=== PATIENT | male | born 1985 | race Caucasian/White ===

== ENCOUNTER 2018-12-11 12:22 | Outpatient (CLI) | payer OTHER, SELFPAY ==
[2018-12-11 12:53] LABS: Abs Immature Grans 0.01 k/cumm (0.0-0.09); Absolute Basophil Count 0.05 k/cumm (0.0-0.2); Absolute Eosinophil Count 0.19 k/cumm (0.0-0.7); Absolute Lymphocyte Count 1.43 k/cumm (1.2-3.4); Absolute Monocyte Count 0.59 k/cumm (0.11-0.7); Absolute Neutrophil Count 3.01 k/cumm (1.2-6.7); Basophils % 0.9; Eosinophils % 3.6; HCT 40.5 % (40.0-50.0); HGB 13.3 g/dL (13.5-17.5); Immature Grans % 0.2; Lymphocytes % 27.1; Mean Corp. HGB Concentration 32.8 g/dL (32.0-36.0); Mean Corpuscular Hemoglobin 21.1 pg (27.0-33.0); Mean Corpuscular Volume 64.3 fL (80-95); Mean Platelet Volume 9.7 fL (8.0-11.0); Monocytes % 11.2; Platelet Count 322 x1000/uL (130-400); RBC Distribution Width 15.4 % (11.8-14.1); White Blood Cell Count 5.28 k/cumm (4.4-10.8)
[2018-12-11 13:30] LABS: ALT 38 U/L (12-78); AST 19 U/L (15-37); Albumin 4.1 g/dL (3.4-5.0); Alkaline Phosphatase 150 U/L (46-116); Anion Gap 7.6 mmol/L (3-11); BUN 17 mg/dL (7-18); Bilirubin, Total 0.3 mg/dL (0.2-1.0); CO2 31.4 mmol/L (21.0-32.0); CREATININE 1.04 mg/dL (0.70-1.30); Calcium 9.5 mg/dL (8.5-10.1); Chloride 101 mmol/L (98-107); Glucose 98 mg/dL (70-100); Potassium 4.3 mmol/L (3.5-5.1); Sodium 140 mmol/L (136-145); Total Protein 7.3 g/dL (6.4-8.2)
[2018-12-11 13:42] LABS: PHENYTOIN (DILANTIN) 15.1 ug/mL (10.0-20.0)
[2018-12-11 13:53] LABS: Diff Comment Agrees w/ Instrument; Hypochromasia 1+; Microcytosis 3+
[2018-12-11 14:36] LABS: Vitamin D 25 Total 30.1 ng/ml (30-100)
== END 2018-12-11 12:42 ==
PROVIDERS: Visit Provider Psychiatry & Neurology Neurology
DX: G35 Multiple sclerosis (principal); G40.109 Localization-related (focal) (partial) symptomatic epilepsy and epileptic syndromes with simple partial seizures, not intractable, without status epilepticus; Z51.81 Encounter for therapeutic drug level monitoring
CPT/HCPCS: 36415; 80053; 82306; 80185; 85025

== ENCOUNTER 2018-12-22 01:20 | Outpatient (CLI) | payer OTHER, SELFPAY ==
--- NOTE | 2018-12-22 13:00 | DI.MRI_ITS ---
SYMPTOM/DIAGNOSIS: MS, CLINICALLY STABLE. FOCAL EPILEPSY G35, G40.109 MRI BRAIN: T2 sagittal, Flair sagittal, T1, T2 Flair, gradient echo and diffusion axial, T2 coronal and post Gadolinium T1 axial and coronal sequences were performed. There are multiple abnormal foci in the periventricular white matter. The largest lesions are located above the left lateral ventricle. There is a lesion seen in the splenium of the corpus callosum. No enhancing lesions are identified. There is no significant underlying atrophy. The vascular flow voids appear intact. The ventricles are normal in size. IMPRESSION: Multiple abnormal high signal lesions in the white matter consistent with the patient's history of multiple sclerosis. There are no enhancing lesions.
[2018-12-22] MEDS: Normal Saline Flush 10 ML SYR IVP (14:47)
[2018-12-22] MEDS: Gadoterate meglumine 20 ML VIAL 14 ML IVP (14:49)
--- NOTE | 2018-12-22 15:09 | DI.MRI_ITS ---
SYMPTOM/DIAGNOSIS: MS, CLINICALLY STABLE, FOCAL EPILEPSY G335, G40.109 MRI CERVICAL SPINE: There are no prior comparison exams. T1, T2, STIR, Flair, and T2 3D sagittal , T1 and gradient echo axial and post Gadolinium T1 axial and coronal sequences were performed. There are degenerative disc changes at C5-6. Small end plate osteophytes and mild posterior disc bulging. No disc herniation is seen. The remaining levels are unremarkable. The cord signal appears normal throughout. No abnormal areas of post contrast enhancement are seen. The marrow signal appears normal. IMPRESSION: Degenerative disc changes at C5-6, some effacement of the anterior CSF space. No cord lesion is identified.
== END 2018-12-22 01:40 ==
PROVIDERS: Visit Provider Psychiatry & Neurology Neurology
DX: G35 Multiple sclerosis (principal); G40.109 Localization-related (focal) (partial) symptomatic epilepsy and epileptic syndromes with simple partial seizures, not intractable, without status epilepticus; M50.322 Other cervical disc degeneration at C5-C6 level
CPT/HCPCS: 70553; 72156

== ENCOUNTER 2018-12-25 01:42 | Outpatient (CLI) | payer OTHER, SELFPAY ==
--- NOTE | 2019-01-03 20:43 | PDOC.EEG_ITS ---
EEG: [facility] Department of Neurology LONG-TERM AMBULATORY EEG REPORT Date of Recordin12/25/18-12/26/18 Interpreting Physician: Dr. Oliva Silva PCP/Referring Provider: Dr. Kary Hernandez Reason for study: Mr. Walker is a 33 year-old man with a history of eliepsy with no recent seizures, comptemplating medication reduction. Current Medications: Home Medications Medication Instructions Recorded Confirmed Type cholecalciferol (vitamin D3) 1,000 1,000 unit PO DAILY 10/22/18 12/10/18 History unit capsule kogxetnwvmmf-Ln-evfg-minerals tab PO DAILY tab 10/22/18 12/10/18 History tablet phenytoin sodium extended 100 mg 400 mg PO BID cap 10/22/18 12/10/18 History capsule glatiramer 20 mg/mL subcutaneous 20 mg SC DAILY #30 ml 12/10/18 12/10/18 Rx syringe levetiracetam 1,000 mg tablet 1,000 mg PO BID #180 tab 12/10/18 12/10/18 Rx phenytoin sodium extended 200 mg 200 mg PO BID #180 cap 12/10/18 12/10/18 Rx capsule METHODS: An 18-channel digitized electroencephalogram was recorded in the ambulatory setting with video. The 10/20 international system of electrode placement was used and bipolar and referential electrode montages were recorded. In addition to EEG the patient was monitored for EKG and by video. Activation procedures of photic stimulation and hyperventilation were performed if applicable. The dura tion of the recording was ~24 hours. DESCRIPTION OF EEG: Waking background activity: During maximal wakefulness a 9-Hz posterior background rhythm was present which was well-modulated, symmetrical, reactive to eye opening, and of moderate voltage. Faster frequencies were present in the bilateral anterior head regions. There was a normal anterior-posterior voltage gradient. Drowsy and sleeping background activity: During drowsiness, there was attenuation of the posterior dominant background rhythm and vertex waves. Normal stage II and III sleep was present with symmetrical sleep spindles, K- complexes, and vertex waves with slowing of the background rhythm to delta/theta frequencies. REM sleep manifested by rapid lateral eye movements and faster background rhythms was recorded. Arousal was unremarkable. There were frequent nocturnal arousals. Interictal abnormalities: none. Ictal findings: No events recorded. Activating Procedures: Photic stimulation was performed which produced no posterior driving response. Hyperventilation was performed with moderate effort and produced no physi ological slowing of the background. EKG: EKG revealed normal sinus rhythm. INTERPRETATION: This long-term EEG is normal during the awake and sleep states as well as during the activation procedures. There were frequent nocturnal arousals. PRIOR EEG: none available CLINICAL CORRELATION: No focal regions of cerebral dysfunction or epileptiform activity was present. There were frequent nocturnal arousals. Clinical correlation for possible sleep apnea is advised. Oliva Silva MD
== END 2018-12-25 02:02 ==
PROVIDERS: Visit Provider Psychiatry & Neurology Neurology
DX: R68.89 Other general symptoms and signs (principal); G35 Multiple sclerosis; G40.109 Localization-related (focal) (partial) symptomatic epilepsy and epileptic syndromes with simple partial seizures, not intractable, without status epilepticus
CPT/HCPCS: 95953

== ENCOUNTER 2019-12-04 02:13 | Outpatient (CLI) | payer OTHER, SELFPAY ==
--- NOTE | 2019-12-04 08:15 | DI.MRI_ITS ---
EXAM: MR BRAIN WO/W CLINICAL HISTORY: MS; stable,G35. TECHNIQUE: Multiplanar multisequence MRI of the brain was performed. CONTRAST MATERIAL: IV Contrast: 15 ML of Dotarem contrast administered. COMPARISON: MR MR HEAD W/WO CONTRAST from 07/15/2017 FINDINGS: VENTRICLES AND EXTRA AXIAL SPACES: Normal in size and morphology for the patient's age. HEMORRHAGE: None. CEREBRAL PARENCHYMA: There are stable multiple bilateral high signal foci in the white matter, some i n a periventricular location. There has been no change in the lesions in the corpus callosum no focu s of restricted diffusion to suggest acute infarct active lesion.. No space-occupying lesion identifi ed. MIDLINE SHIFT: None. BRAINSTEM/CEREBELLUM: Normal. ENHANCEMENT: No suspicious enhancement identified. VISUALIZED PARANASAL SINUSES/MASTOIDS: Mucous retention at the floor of the right maxillary sinus.. OTHER FINDINGS: The vascular flow voids appear intact. The orbits are unremarkable. IMPRESSION: Multiple stable white matter lesions consistent with the patient's history of multiple sclerosis. No new lesions or evidence of enhancement. DATA REPOSITORY:
[2019-12-04 14:40] LABS: Abs Immature Grans 0.01 k/cumm (0.0-0.09); Absolute Basophil Count 0.02 k/cumm (0.0-0.2); Absolute Eosinophil Count 0.27 k/cumm (0.0-0.7); Absolute Lymphocyte Count 2.15 k/cumm (1.2-3.4); Absolute Monocyte Count 0.48 k/cumm (0.11-0.7); Absolute Neutrophil Count 3.03 k/cumm (1.2-6.7); Basophils % 0.3; Eosinophils % 4.5; HCT 39.8 % (40.0-50.0); HGB 13.2 g/dL (13.5-17.5); Immature Grans % 0.2 %; Lymphocytes % 36.1; Mean Corp. HGB Concentration 33.2 g/dL (32.0-36.0); Mean Platelet Volume 9.8 fL (8.0-11.0); Monocytes % 8.1; Neutrophils % 50.8; Platelet Count 313 x1000/uL (130-400); RBC Distribution Width 15.5 % (11.8-14.1); White Blood Cell Count 5.96 k/cumm (4.4-10.8)
[2019-12-04] MEDS: Gadoterate meglumine 20 ML VIAL 10 ML IVP (14:52)
[2019-12-04] MEDS: Normal Saline Flush 10 ML SYR IVP (14:54)
[2019-12-04 14:57] LABS: ALT 49 U/L (16-63); AST 25 U/L (15-37); Albumin 4.1 g/dL (3.4-5.0); Alkaline Phosphatase 96 U/L (46-116); Anion Gap 3.9 mmol/L (3-11); BUN 24 mg/dL (7-18); Bilirubin, Total 0.4 mg/dL (0.2-1.0); CO2 31.1 mmol/L (21.0-32.0); CREATININE 1.25 mg/dL (0.70-1.30); Calcium 9.5 mg/dL (8.5-10.1); Chloride 103 mmol/L (98-107); Glucose 117 mg/dL (74-106); Potassium 4.1 mmol/L (3.5-5.1); RBC 6.23 m/cumm (4.50-6.00); Sodium 138 mmol/L (136-145); Total Protein 7.5 g/dL (6.4-8.2)
[2019-12-04 14:58] LABS: Mean Corpuscular Hemoglobin 21.2 pg (27.0-33.0); Mean Corpuscular Volume 63.9 fL (80-95)
[2019-12-04 15:02] LABS: Diff Comment RBC Morph Reviewed; Microcytosis 2+
== END 2019-12-04 02:33 ==
PROVIDERS: PCP Family Medicine; Visit Provider Psychiatry & Neurology Neurology
DX: G35 Multiple sclerosis (principal)
CPT/HCPCS: 70553; 80053; 85025

== ENCOUNTER 2019-12-15 14:56 | Outpatient (REF) | payer OTHER, SELFPAY ==
[2019-12-17 10:20] LABS: COVID-19 RT-PCR UVMMC Result Negative (Negative)
== END 2019-12-15 15:16 ==
LOC: NCHCN 14:56
PROVIDERS: PCP Family Medicine; Visit Provider Nurse Practitioner Family
DX: J02.9 Acute pharyngitis, unspecified (principal)
CPT/HCPCS: U0003

== ENCOUNTER 2019-12-24 04:41 | Outpatient (CLI) | payer OTHER, SELFPAY ==
[2019-12-24 13:04] LABS: ALT 45 U/L (16-63); AST 30 U/L (15-37); Albumin 4.4 g/dL (3.4-5.0); Alkaline Phosphatase 101 U/L (46-116); Anion Gap 9.3 mmol/L (3-11); BUN 21 mg/dL (7-18); Bilirubin, Total 0.5 mg/dL (0.2-1.0); CO2 28.7 mmol/L (21.0-32.0); Calcium 9.8 mg/dL (8.5-10.1); Chloride 102 mmol/L (98-107); Glucose 91 mg/dL (74-106); Potassium 4.3 mmol/L (3.5-5.1); Sodium 140 mmol/L (136-145); Total Protein 7.5 g/dL (6.4-8.2); Triglyceride 47 mg/dL (<150)
== END 2019-12-24 05:01 ==
PROVIDERS: PCP Family Medicine; Visit Provider Dermatology
DX: Z79.899 Other long term (current) drug therapy (principal)
CPT/HCPCS: 36415; 80053; 84478

== ENCOUNTER 2020-01-06 04:37 | Outpatient (CLI) | payer OTHER, SELFPAY ==
--- NOTE | 2020-01-12 09:04 | PDOC.EEG ---
Neurology EEG EEG: Of note, this study was performed in error. There should be no charges for this visit! [facility] Department of Neurology LONG-TERM AMBULATORY EEG REPORT Date of Recordin01/06/20 at 15:31:01 to 01/07/20 at 12:10:11 Interpreting Physician: Dr. Oliva Silva PCP/Referring Provider: Dr. Hernandez Reason for study: Mr. Walker has a history of seizure disorder. This test was performed in error. Current Medications: Home Medications Medication Instructions Recorded Confirmed Type levetiracetam 1,000 mg tablet 1,000 mg PO BID #180 tab 12/10/18 11/25/19 Rx ergocalciferol (vitamin D2) 1,250 50,000 unit PO QWEEK #12 cap 02/05/19 11/25/19 Rx mcg (50,000 unit) capsule tretinoin 0.05 % topical cream 1 applic TP QHS 02/05/19 11/25/19 History doxycycline hyclate 100 mg tablet 100 mg PO BID 06/10/19 11/25/19 History glatiramer 20 mg/mL subcutaneous 20 mg SC DAILY #30 ml 12/28/19 Rx syringe METHODS: An 18-channel digitized electroencephalogram was recorded in the ambulatory setting with video. The 10/20 international system of electrode placement was used and bipolar and referential electrode montages were recorded. In addition to EEG the patient was monitored for EKG and by video. Activation procedures of photic stimulation and hyperventilation were performed if applicable. The duration of the recording was 20.5 hours. DESCRIPTION OF EEG: Waking background activity: During maximal wakefulness a 9-Hz posterior background rhythm was present which was well-modulated, symmetrical, reactive to eye opening, and of moderate voltage. Faster frequencies were present in the bilateral anterior head regions. There was a normal anterior-posterior voltage gradient. Drowsy and sleeping background activity: During drowsiness, there was attenuation of the posterior dominant background rhythm and vertex waves. Normal stage II and III sleep was present with symmetrical sleep spindles, K-complexes, and vertex waves with slowing of the background rhythm to delta/theta frequencies. REM sleep manifested by rapid lateral eye movements and faster background rhythms was recorded. Arousal was unremarkable. Interictal abnormalities: none. Ictal findings: No events recorded. Activating Procedures: Photic stimulation was performed which produced a symmetrical posterior driving response at various flash frequencies. There was a generalized, low-amplitude single sharp-wave during 3 Hz photic stimulation (this was not repeated). Hyperventilation was performed with moderate effort and produced mild physiological slowing of the background. EKG: EKG revealed normal sinus rhythm. INTERPRETATION: This long-term EEG is abnormal due to a low-amplitude, generalized photoparoxysmal response during photic stimulation. PRIOR EEG: -Amb EEG (12/2018): normal. No events recorded. Frequent noctural arousals. CLINICAL CORRELATION: The photoparoxysmal response above is not diagnostic of an epileptic disorder but, based on it's features, suggests an increased risk of a generalized epilepsy disorder. Clinical correlation is advised. Oliva Silva MD
== END 2020-01-06 04:57 ==
PROVIDERS: PCP Family Medicine; Visit Provider Psychiatry & Neurology Neurology
DX: R69 Illness, unspecified (principal)

== ENCOUNTER 2020-06-21 09:54 | Outpatient (CLI) | payer OTHER, SELFPAY ==
[2020-06-23 21:39] LABS: COVID-19 RT-PCR Result NEGATIVE (Negative)
== END 2020-06-21 10:14 ==
PROVIDERS: PCP Student in an Organized Health Care Education/Training Program; Visit Provider Student in an Organized Health Care Education/Training Program
DX: Z20.828 Contact with and (suspected) exposure to other viral communicable diseases (principal)
CPT/HCPCS: U0003

== ENCOUNTER 2020-09-23 02:27 | Outpatient (CLI) | payer OTHER, SELFPAY ==
[2020-09-23 15:44] LABS: ALT 43 U/L (16-63); AST 28 U/L (15-37); Triglyceride 120 mg/dL (<150)
== END 2020-09-23 02:28 | disposition home or self-care (01) ==
LOC: LBO 02:27
PROVIDERS: PCP Student in an Organized Health Care Education/Training Program; Visit Provider Dermatology
DX: Z79.899 Other long term (current) drug therapy (principal); L40.9 Psoriasis, unspecified
CPT/HCPCS: 36415; 84450; 84460; 84478

== ENCOUNTER 2021-11-30 17:09 | Emergency (ER) | payer OTHER, SELFPAY ==
--- NOTE | 2021-11-30 17:11 | ED.GENADUL_ITS ---
Discharge Plan Disposition Patient Disposition: HOME Condition: Improving Discharge Details Clinical Impression: Vomiting and diarrhea Primary Care Provider: Petrona Stewart ED Provider: Senia Hendricks Home Meds and New Rx's Prescriptions: Continued meloxicam 15 mg tablet 15 mg PO DAILY PRN glatiramer [Glatopa] 20 mg/mL syringe 20 mg SC DAILY Qty: 30 11RF ergocalciferol (vitamin D2) [Vitamin D2] 1,250 mcg (50,000 unit) capsule 50,000 unit PO QWEEK Qty: 12 3RF levetiracetam 500 mg tablet extended release 24 hr 1,000 mg PO HS Qty: 180 3RF tretinoin 0.05 % cream 1 applic topical QHS Rx Instructions: Apply topically 1/2 nights per week, working up to nightly Discharge Instructions Instructions: Gastroenteritis (ED), Acute Nausea and Vomiting (ED), Acute Diarrhea (ED) Additional Instructions: Your lab work today is reassuring and shows no evidence of acute concerning or significant findings. Your COVID, flu and RSV test today are negative. Your stool sample culture is pending. Drink plenty of fluids and get plenty of rest. Alternate tylenol and motrin as needed and directed for pain. Take the Zofran as needed and directed for nausea and vomiting. Follow-up with your primary care doctor in 1 week. Return to the emergency department with any worsening or new concerning symptoms such as worsening or persistent fevers, persistent vomiting or worsening abdominal pain for reevaluation. Stand Alone Forms: Work Release Discharge Data Discharge Date/Time-TO BE ENTERED AT DEPARTURE: 11/30/21 20:38 Discharge Physician: Senia Hendricks Medical Decision Making 1720 -- 36-year-old male with a history of multiple sclerosis and epilepsy presents with fever, chills, body aches, nausea, vomiting x1 and multiple episodes of watery yellow diarrhea since yesterday. Heart rate mildly elevated at 98. Remainder vitals within normal limits. Patient appears comfortable and nontoxic. Patient is concerned about possible COVID or influenza as his has a chronic illness and does not want to expose her to either of these. He has received 3 COVID vaccines. He states he has not urinated today. Suspect acute viral illness, consider influenza, COVID, gastroenteritis. We will place an IV, bolus IV fluids, Fluvid, screening labs and give dose of IV Zofran, Toradol and reassess. 1899 --labs reviewed. Normal white blood cell count. Patient has low RBC, MCV and MCHC CAD consistent with history of thalassemia and iron deficiency. Potassium 3.4. Negative Fluvid. Patient reassessed and he states he has not yet urinated. He denies any abdominal pain. Reassessment of abdomen is soft and nontender. Discussed consideration for CT imaging but he declines at this time and I think this is reasonable as he has no significant abdominal pain and abdomen nontender. We will give another liter of IV fluids and see if he can attempt to urinate but overall he feels improved. He has not had any episodes of diarrhea here. 2019 --patient reassessed and he was able to urinate and urinalysis negative. He was able to provide stool sample. Patient is requesting to go home. He admits to occasional abdominal discomfort but denies any significant pain and would rather go home at this time. Will provide with Zofran as needed for nausea and vomiting. Discussed that if he develops persistent vomiting or worsening abdominal pain, to return to the emergency department for reevaluation and for discussion of CT imaging at that time. Medical Records Medical records reviewed: Yes I reviewed the patient's medical records. Lab Data Lab results reviewed: Yes I reviewed the patient's lab results. Labs: Laboratory Tests Range/Units 11/30/21 11/30/21 11/30/21 17:43 17:43 17:45 WBC (4.4-10.8) 10^3/uL 7.07 RBC (4.36-5.78) 10^6/uL 7.08 H Hgb (13.5-17.5) g/dL 14.4 Hct (40.0-50.0) % 46.9 MCV (80-95) fL 66 L MCH (27.0-33.0) pg 20.3 L MCHC (32.0-36.0) % 30.7 L RDW (11.8-14.1) % 16.0 H Plt Count (130-400) 10^3/uL 279 MPV (8.0-11.0) fL 9.4 Immature Gran % 0.3 Neutrophils % 83.5 Lymphocytes % 9.9 Monocytes % 5.8 Eosinophils % 0.1 Basophils % 0.4 Nucleated RBC % (0.0-0.3) % 0.0 Absolute Neutrophils (1.2-6.7) 10^3/uL 5.90 Absolute Lymphocytes (1.2-3.4) 10^3/uL 0.70 L Absolute Monocytes (0.1-0.8) 10^3/uL 0.41 Absolute Eosinophils (0.0-0.7) 10^3/uL 0.01 Absolute Basophils (0.0-0.2) 10^3/uL 0.03 RBC Morphology See Below Microcytosis 3+ Sodium (136-145) mmol/L 136 Potassium (3.5-5.1) mmol/L 3.4 L Chloride (98-107) mmol/L 102 Carbon Dioxide (21.0-32.0) mmol/L 27.0 Anion Gap (3-11) mmol/L 7.0 BUN (7-18) mg/dL 11 Creatinine (0.70-1.30) mg/dL 1.3 Estimated GFR/1.73 m2 (mL/min/1.73m2) >= 60.00 Glucose (74-106) mg/dL 137 H Calcium (8.5-10.1) mg/dL 9.1 Total Bilirubin (0.2-1.0) mg/dL 0.3 AST (15-37) U/L 23 ALT (16-63) U/L 32 Alkaline Phosphatase (46-116) U/L 98 Total Protein (6.4-8.2) g/dL 8.2 Albumin (3.4-5.0) g/dL 4.3 Lipase (73-393) U/L 60 Urine Color (Yellow) Urine Clarity (Clear) Urine pH (5-8) Ur Specific [place] (1.005-1.025) Urine Protein (Negative) mg/dL Urine Ketones (Negative) mg/dL Urine Blood (Negative) Urine Nitrite (Negative) Urine Bilirubin (Negative) Urine Urobilinogen (Up TO 0.2) EU/dL Ur Leukocyte Esterase (Negative) Urine Glucose (Negative) mg/dL COVID-19 Source Nasopharynx SARS-CoV-2 (PCR) (Negative) Negative Influenza Type A (PCR) (Negative) Negative Influenza Type B (PCR) (Negative) Negative RSV (PCR) (Negative) Negative Range/Units 11/30/21 19:35 WBC (4.4-10.8) 10^3/uL RBC (4.36-5.78) 10^6/uL Hgb (13.5-17.5) g/dL Hct (40.0-50.0) % MCV (80-95) fL MCH (27.0-33.0) pg MCHC (32.0-36.0) % RDW (11.8-14.1) % Plt Count (130-400) 10^3/uL MPV (8.0-11.0) fL Immature Gran % Neutrophils % Lymphocytes % Monocytes % Eosinophils % Basophils % Nucleated RBC % (0.0-0.3) % Absolute Neutrophils (1.2-6.7) 10^3/uL Absolute Lymphocytes (1.2-3.4) 10^3/uL Absolute Monocytes (0.1-0.8) 10^3/uL Absolute Eosinophils (0.0-0.7) 10^3/uL Absolute Basophils (0.0-0.2) 10^3/uL RBC Morphology Microcytosis Sodium (136-145) mmol/L Potassium (3.5-5.1) mmol/L Chloride (98-107) mmol/L Carbon Dioxide (21.0-32.0) mmol/L Anion Gap (3-11) mmol/L BUN (7-18) mg/dL Creatinine (0.70-1.30) mg/dL Estimated GFR/1.73 m2 (mL/min/1.73m2) Glucose (74-106) mg/dL Calcium (8.5-10.1) mg/dL Total Bilirubin (0.2-1.0) mg/dL AST (15-37) U/L ALT (16-63) U/L Alkaline Phosphatase (46-116) U/L Total Protein (6.4-8.2) g/dL Albumin (3.4-5.0) g/dL Lipase (73-393) U/L Urine Color (Yellow) Yellow Urine Clarity (Clear) Clear Urine pH (5-8) 5.5 Ur Specific [place] (1.005-1.025) 1.020 Urine Protein (Negative) mg/dL Negative Urine Ketones (Negative) mg/dL Negative Urine Blood (Negative) Negative Urine Nitrite (Negative) Negative Urine Bilirubin (Negative) Negative Urine Urobilinogen (Up TO 0.2) EU/dL 0.2 Ur Leukocyte Esterase (Negative) Negative Urine Glucose (Negative) mg/dL Negative COVID-19 Source SARS-CoV-2 (PCR) (Negative) Influenza Type A (PCR) (Negative) Influenza Type B (PCR) (Negative) RSV (PCR) (Negative) HPI General Date/Time Provider Initiated Documentation: 11/30/21 17:10 . Limitations to Documentation: no limitations . Information obtained by: patient . HPI Narrative: Patient is a 36-year-old male with a history of multiple sclerosis and epilepsy who presents with fever, body aches, chills, nausea, 1 episode of vomiting and multiple episodes of diarrhea since yesterday. Patient states the diarrhea has been loose, watery and yellow. He states he has had diarrhea every 3 hours today. He states his T-max was 99 tympanic. He Related Data Home Medications Medication Instructions Recorded Confirmed meloxicam 15 mg tablet 15 mg PO DAILY PRN 06/13/20 11/30/21 ergocalciferol (vitamin D2) 1,250 50,000 unit PO QWEEK #12 caps 06/27/20 11/30/21 mcg (50,000 unit) capsule (Vitamin D2) glatiramer 20 mg/mL subcutaneous 20 mg subcut DAILY #30 mL 12/20/20 11/30/21 syringe (Glatopa) levetiracetam 500 mg 1,000 mg PO HS #180 tabs 06/27/21 11/30/21 tablet,extended release 24 hr tretinoin 0.05 % topical cream 1 applic topical QHS 08/10/21 11/30/21 Previous Rx's Medication Instructions Recorded ergocalciferol (vitamin D2) 1,250 50,000 unit PO QWEEK #12 caps 06/27/20 mcg (50,000 unit) capsule (Vitamin D2) glatiramer 20 mg/mL subcutaneous 20 mg subcut DAILY #30 mL 12/20/20 syringe (Glatopa) levetiracetam 500 mg 1,000 mg PO HS #180 tabs 06/27/21 tablet,extended release 24 hr Allergies Allergy/AdvReac Type Severity Reaction Status Date / Time No Known Allergies Allergy Verified 11/30/21 18:04 General Stated Complaint: Nausea/Vomit/Diar Review of Systems All systems reviewed & are unremarkable except as noted in HPI and below Constitutional Constitutional: Denies chills, Denies excessive sweating, Denies fatigue, Denies fever(s), Denies weakness and Denies weight loss Eyes Eyes: Reports system reviewed and no additional complaints, except as documented and Denies blurry vision ENT Ears, Nose, Mouth, and Throat: Denies vertigo, Denies dizziness, Denies otalgia, Denies nasal congestion, Denies sore throat and Denies throat swelling Cardiovascular Cardiovascular: Denies chest pain, Denies syncope, Denies rapid heart rate and Denies dyspnea Respiratory Respiratory: Denies chest congestion, Denies cough, Denies pain on inspiration and Denies dyspnea Gastrointestinal Gastrointestinal: Denies abdominal pain, Reports diarrhea, Reports nausea and Reports vomiting Genitourinary Genitourinary: Denies hematuria, Denies dysuria and Denies flank pain Musculoskeletal Musculoskeletal: Denies back pain and Denies joint swelling Integumentary/Breasts Skin/Breast: Denies lesions and Denies rash Neurologic Neurologic: Denies behavioral changes, Denies confusion, Denies vertigo, Denies dizziness, Denies syncope, Denies localized weakness and Denies weakness Psychiatric Psychiatric: Denies behavioral changes, Denies confusion and Denies depression Endocrine Endocrine: Denies excessive sweating and Denies fatigue Hematologic/Lymphatic Hematologic/Lymphatic: Denies easy bruising and Denies lymphadenopathy Allergic/Immunologic Allergic/Immunologic: Denies throat swelling PFSH All Active Problems (Updated 11/30/21 @ 20:18 by Senia Hendricks DO) Vomiting and diarrhea (Acute) Stress due to illness of family member (Acute) is going through breast cancer Tx .. young baby @ home .. supportive extended family?? Acne vulgaris (Acute) Per [facility] Derm note from 84 Acne (Acute) Sees dermatology: Accutane, Tretinoin. Uses sunscreen. Family history of heart disease (Acute) Fa had OH @ 44yo (Hx smkg/chol/poor diet, ex). Mo w/ HTN. Hand paresthesia (Acute) resolved .. repetitive work Medical History (Updated 11/30/21 @ 20:18 by Senia Hendricks DO) Focal epilepsy Iron deficiency Hx Thalassemia Multiple sclerosis Surgical History (Updated 11/30/21 @ 19:03 by Senia Hendricks DO) No significant past surgical history Family History Father Heart attack Diabetes Heart disease Maternal Grandfather Heart attack Paternal Grandfather Diabetes Mother Thalassemia Maternal Uncle Breast cancer in male Other Brain cancer Social History Smoking/Tobacco Use Status: Former Tobacco Use Quit Date: 07/08/14 Pack-years: 10 Tobacco: How many years used: 10 Second Hand Exposure: No Smoking risk assessment performed?: Yes Alcohol Intake: current Alcohol Intake frequency: a few times a week Alcohol type: beer and other Drug use: Never Substance use type: marijuana Adopted: No Caregiver/Support person: No Foster care: No Household members: spouse and children Housing: house Number of Children: 1 number of grandchildren: 0 Communication Needs: None Education Level: college Do you need help understanding health information?: Rarely current occupation: Production/Entertainment Pets and animals: Yes Pets and animals: cat(s) and dog(s) Sexually active: Yes Do you think of yourself as: straight/heterosexual Current gender identity: male What is your relationship status?: How often do you talk on the phone with friends or family?: once per week How often do you get together with friends or relatives?: never Do you belong to any clubs or organized social groups?: no Panel score (0-1 are the most socially isolated patients): 1 What type of physical activity do you participate in: walking Duration: 30-45 minutes/day Frequency: 3-4 times per week Rajwinder/Sabianist: None Special rajwinder needs: No Seatbelt use: always Helmet use: Yes Helmet use: other Details: n/a Drive intox or ride w/intox spike driver: No Working smoke detector in home: Yes Do you feel safe at home: Yes Do you feel safe in your relationship?: Yes Exam Const General: cooperative and healthy appearing Orientation: alert, awake and oriented x3 HENMT Head: normal to inspection Ears: hearing grossly normal bilaterally, external ears normal and TM's normal bilaterally General nose exam: external nose normal Face and sinus: normal facial exam Mouth: oral mucosae normal Teeth and gingiva: dentition normal Throat: posterior oropharynx normal Eyes General: appearance normal, both eyes and all related structures Eyelids: eyelids normal Pupils: PERRL EOM: EOM intact bilaterally Neck Neck: normal visual inspection Lymphatic: no lymphadenopathy noted Chest Chest: normal inspection of the chest Resp Effort & Inspection: normal respiratory effort and able to speak in complete sentences Auscultation: clear to auscultation bilaterally Cardio Rate: regular rate Rhythm: regular rhythm GI Inspection: normal to inspection Palpation: soft, not firm, no guarding, no hepatosplenomegaly, no masses and nontender Auscultation: normal bowel sounds Back/Spine/Pelvis Back: no CVA tenderness Skin General skin exam: no rashes or lesions noted Neuro General: patient alert and patient awake Cognition: normal cognition Speech: speech normal Gait: normal gait Motor: muscle tone normal throughout Sensory Exam: no sensory deficits noted Extrem General: normal to inspection, full ROM and capillary refill normal Psych Appearance: grossly normal Mental Status: mental status grossly normal Speech and Movement: speech and movement normal Affect: normal affect Thought Process: normal
[2021-11-30 17:13] VITALS: BP 135/90; PULSE 98; RESP 18; TEMP 37.1; O2SAT 99
[2021-11-30 17:52] LABS: Abs Immature Grans 0.02 10^3/uL (0.0-0.06); Absolute Basophil Count 0.03 10^3/uL (0.0-0.2); Absolute Eosinophil Count 0.01 10^3/uL (0.0-0.7); Absolute Monocyte Count 0.41 10^3/uL (0.1-0.8); Basophils % 0.4; Eosinophils % 0.1; HCT 46.9 % (40.0-50.0); HGB 14.4 g/dL (13.5-17.5); Immature Grans % 0.3; Lymphocytes % 9.9; MCH 20.3 pg (27.0-33.0); MCHC 30.7 % (32.0-36.0); MCV 66 fL (80-95); MPV 9.4 fL (8.0-11.0); Monocytes % 5.8; Neutrophils % 83.5; Platelet Count 279 10^3/uL (130-400); RBC 7.08 10^6/uL (4.36-5.78); RDW-SD 33.3 fL; WBC 7.07 10^3/uL (4.4-10.8)
[2021-11-30] MEDS: Normal Saline 1,000 ML 1000 ML IV ×2 (17:57→19:00)
[2021-11-30] MEDS: Ketorolac 30 MG/ML VIAL IVP (17:58)
[2021-11-30] MEDS: Ondansetron 4 MG/2 ML VIAL IVP (17:58)
[2021-11-30 18:05] LABS: ALT 32 U/L (16-63); AST 23 U/L (15-37); Albumin 4.3 g/dL (3.4-5.0); Alkaline Phosphatase 98 U/L (46-116); BUN 11 mg/dL (7-18); Bilirubin, Total 0.3 mg/dL (0.2-1.0); CREATININE 1.3 mg/dL (0.70-1.30); Calcium 9.1 mg/dL (8.5-10.1); Chloride 102 mmol/L (98-107); Glucose 137 mg/dL (74-106); Lipase 60 U/L (73-393); Potassium 3.4 mmol/L (3.5-5.1); Sodium 136 mmol/L (136-145); Total Protein 8.2 g/dL (6.4-8.2)
[2021-11-30 18:14] LABS: Diff Comment RBC Morph Reviewed; Microcytosis 3+
[2021-11-30 18:37] LABS: COVID-19 PCR Negative (Negative); Influenza A PCR Negative (Negative); Influenza B PCR Negative (Negative); RSV PCR Negative (Negative); Source Nasopharynx
[2021-11-30 19:58] LABS: Bilirubin Negative (Negative); Blood Negative (Negative); Clarity Clear (Clear); Glucose Negative (Negative); Ketones Negative (Negative); Leukocyte Esterase Negative (Negative); Nitrite Negative (Negative); Urobilinogen 0.2 EU/dL (Up TO 0.2); pH 5.5 (5-8)
[2021-11-30] MEDS: Ondansetron O.D.T. 4 MG TABEF, 3 TABS/BTL PO (20:27)
[2021-11-30 20:29] VITALS: BP 118/73; PULSE 77; RESP 16; TEMP 37.1; O2SAT 100
[2021-11-30 20:30] VITALS: BP 118/73; PULSE 77; RESP 16; TEMP 37.1; O2SAT 100
[2021-11-30 21:26] LABS: C Diff PCR Negative (Negative)
[2021-12-01 23:26] LABS: Campylobacter PCR Negative (Negative); Salmonella PCR Negative (Negative); Shiga Toxin PCR Negative (Negative); Shigella/Enteroinvasive Ecoli Negative (Negative)
== END 2021-11-30 20:38 | disposition home or self-care (01) ==
PROVIDERS: Emergency Provider Physician Assistant; PCP Student in an Organized Health Care Education/Training Program
DX: R11.10 Vomiting, unspecified (principal); R19.7 Diarrhea, unspecified
CPT/HCPCS: 36415; 80053; 83690; 87493; 87505; 87637; 96361; 96374; 96375; 99283; 99284; 81003; 85025; J1885; J2405

== ENCOUNTER → 2021-12-13 02:57 | Outpatient (CLI) | payer OTHER, SELFPAY ==
--- NOTE | 2021-12-13 07:15 | DI.MRI_ITS ---
Exam(s) MR BRAIN WO EXAM: MR BRAIN WO CLINICAL HISTORY: MS, clinically stable,g35 TECHNIQUE: Multiplanar multisequence MRI of the brain was performed. MR MR BRAIN WO/W from 12/04/2019 FINDINGS: CEREBRAL PARENCHYMA: There is no evidence of intracranial hemorrhage, mass effect, or shift of midline structures. There are no extra-axial fluid collections. Ventricles are not enlarged or shifted. There is no abnormal signal in the cerebellar hemispheres nor within the bart, midbrain, and thalami. The multiple foci of white matter signal abnormality in the Sherly in supra ventricular white matter as well as in the corpus callosum remains stable on FLAIR imaging when compared to December 2018. There are no foci of restricted diffusion evident on DWI imaging. PITUITARY GLAND: No mass nor parasellar abnormality. No obvious abnormality in the cavernous sinuses. FLOW VOIDS: The expected flow void are noted. No evidence of obvious aneurysm nor obvious vascular ma lformation. PARANASAL SINUSES: Unchanged mucosal thickening in floor the right maxillary sinus. No associated fl uid level. Other paranasal sinuses are clear. ORBITS: No new findings in the orbits. IMPRESSION: Continued stable appearance of the previously described multiple white matter lesions/plaques. No ne w lesions. No abnormal new signal on diffusion imaging. DATA REPOSITORY:
== END ==
PROVIDERS: PCP Student in an Organized Health Care Education/Training Program; Visit Provider Psychiatry & Neurology Neurology
DX: G35 Multiple sclerosis (principal)
CPT/HCPCS: 70551

== ENCOUNTER 2022-02-07 03:11 | Outpatient (CLI) | payer OTHER, SELFPAY ==
[2022-02-07 09:02] LABS: HCT 43.3 % (40.0-50.0); HGB 13.7 g/dL (13.5-17.5); MCH 20.5 pg (27.0-33.0); MCHC 31.6 % (32.0-36.0); MCV 65 fL (80-95); MPV 9.2 fL (8.0-11.0); Platelet Count 326 10^3/uL (130-400); RBC 6.67 10^6/uL (4.36-5.78); RDW 15.2 % (11.8-14.1); RDW-SD 33.1 fL; WBC 6.34 10^3/uL (4.4-10.8)
[2022-02-07 09:32] LABS: Calculated LDL 117 mg/dL (<100); Cholesterol 206 mg/dL (<200); HDL Cholesterol 77 mg/dL (40-60); Triglyceride 64 mg/dL (<150)
[2022-02-08 09:19] LABS: Lab Add On Test DONE
[2022-02-09 14:54] LABS: Hemoglobinopathy Interpretat (See Note)
== END 2022-02-07 03:12 | disposition home or self-care (01) ==
LOC: LBO 03:11
PROVIDERS: PCP Student in an Organized Health Care Education/Training Program; Visit Provider Student in an Organized Health Care Education/Training Program
DX: E46 Unspecified protein-calorie malnutrition (principal); E61.1 Iron deficiency; G35 Multiple sclerosis; R20.2 Paresthesia of skin; Z82.49 Family history of ischemic heart disease and other diseases of the circulatory system; Z13.220 Encounter for screening for lipoid disorders; D64.9 Anemia, unspecified; D56.9 Thalassemia, unspecified; R71.8 Other abnormality of red blood cells
CPT/HCPCS: 36415; 80061; 82306; 85027; 83020

== ENCOUNTER 2022-03-12 01:13 | Outpatient (RCR) | payer OTHER, SELFPAY ==
[2022-03-08] MEDS: Normal Saline Flush 10 ML SYR IVP (13:23)
[2022-03-09] MEDS: Normal Saline Flush 10 ML SYR IVP (13:34)
[2022-03-10] MEDS: Normal Saline Flush 10 ML SYR IVP (13:10)
[2022-03-11] MEDS: Normal Saline Flush 10 ML SYR IVP (13:04)
[2022-03-12] MEDS: Normal Saline Flush 10 ML SYR IVP (13:03)
== END 2022-04-06 23:59 | disposition home or self-care (01) ==
LOC: INF 01:13
PROVIDERS: PCP Student in an Organized Health Care Education/Training Program; Visit Provider Psychiatry & Neurology Neurology
DX: G35 Multiple sclerosis (principal)
CPT/HCPCS: 96365; J2930

== ENCOUNTER → 2022-03-15 02:20 | Outpatient (CLI) | payer OTHER, SELFPAY ==
--- NOTE | 2022-03-15 08:00 | DI.MRI_ITS ---
Exam(s) MR THORACIC SPINE WO/W EXAM: MR THORACIC SPINE WO/W CLINICAL HISTORY: new R leg weakness,MS,G35. TECHNIQUE: Multiplanar multisequence MRI of the Thoracic spine was performed. CONTRAST MATERIAL: IV Contrast: 15 mL of Dotarem contrast administered. COMPARISON: No previous for comparison. FINDINGS: Bones: The vertebral body heights are well maintained. Alignment is satisfactory. The signal characte ristics are unremarkable. Cord: The thoracic cord is normal size and signal intensity. No intrinsic cord lesion is present. Discs: No disc herniation or bulge is present. Soft tissues: Multiple pulmonary nodules are seen up to 1.3 cm in size. Enhancement: There is no abnormal enhancement seen in the spinal cord. IMPRESSION: 1. No spinal cord lesion is seen. No enhancing lesion is seen in the spinal cord. 2. Multiple pulmonary nodules are present up to 1.3 [address] in size[address] A [address] scan of the chest is requested for further evaluation. DATA REPOSITORY:
--- NOTE | 2022-03-15 08:00 | DI.MRI_ITS ---
Exam(s) MR BRAIN WO/W EXAM: MR BRAIN WO/W CLINICAL HISTORY: new R leg weakness,MS,G35 TECHNIQUE: Multiplanar multisequence MRI of the brain was performed. CONTRAST MATERIAL: IV Contrast: 15 mL of Dotarem contrast administered. COMPARISON: MR MR BRAIN WO from 12/13/2021 FINDINGS: VENTRICLES AND EXTRA AXIAL SPACES: Normal in size and morphology for the patient's age. HEMORRHAGE: None. CEREBRAL PARENCHYMA: No focus of restricted diffusion to suggest acute infarct. No space-occupying le giuliana identified. There has been no change in size or number of the multiple white matter lesions seen on the FLAIR and T2 weighted images predominantly in the periventricular space. There is no enhance ment of these lesions following contrast administration. MIDLINE SHIFT: None. BRAINSTEM/CEREBELLUM: Normal. CALVARIUM: Normal. ENHANCEMENT: No suspicious enhancement identified. VISUALIZED PARANASAL SINUSES/MASTOIDS: Small mucous retention cysts or polyps are seen in the right m axillary sinus. The remaining visualized paranasal sinuses are clear. [place] OF JULIEN: Normal flow void. PITUITARY GLAND: Unremarkable. OTHER FINDINGS: IMPRESSION: Stable size and number of white matter lesions since 12/13/2021. No enhancement is seen. DATA REPOSITORY:
--- NOTE | 2022-03-15 08:00 | DI.MRI_ITS ---
Exam(s) MR CERVICAL SPINE WO/W EXAM: MR CERVICAL SPINE WO/W CLINICAL HISTORY: new R leg weakness,MS,G35 TECHNIQUE: Multiplanar multisequence MRI of the cervical spine was performed. CONTRAST MATERIAL: IV Contrast: 15 ML of Dotarem contrast administered. FINDINGS: BONES: Vertebral body heights are maintained. Intervertebral disc spaces are normal. Alignment is nor mal. Bone marrow signal intensity is within normal limits. CERVICAL CORD: Craniovertebral junction is unremarkable. The cervical cord is normal size and signal intensity. No lesion is present. SOFT TISSUES: Unremarkable. ENHANCEMENT: No enhancing spinal cord lesions are identified. C2-3: No disc herniation or bulge is identified. No significant central spinal canal or neural forami nal stenosis. C3-4: No disc herniation or bulge is identified. No significant central spinal canal or neural forami nal stenosis C4-5: No disc herniation or bulge is identified. No significant central spinal canal or neural forami nal stenosis C5-6: Stable mild prominence of the osteophyte disc complex. It is eccentric to the left. There is effacement of the anterior subarachnoid space. No significant central spinal canal stenosis is seen. There does appear to be mild narrowing of the left neural foramen. No significant right neural for aminal stenosis is present. C6-7: No disc herniation or bulge is identified. No significant central spinal canal or neural forami nal stenosis C7-T1: No disc herniation or bulge is identified. No significant central spinal canal or neural angelo inal stenosis IMPRESSION: 1. Stable degenerative changes in the cervical spine. 2. No abnormal signal is seen in the spinal cord. No abnormal enhancement is present in the spinal c ord. DATA REPOSITORY:
[2022-03-15] MEDS: Normal Saline Flush 10 ML SYR IVP (13:38)
== END ==
PROVIDERS: PCP Student in an Organized Health Care Education/Training Program; Visit Provider Psychiatry & Neurology Neurology
DX: G35 Multiple sclerosis (principal); M62.81 Muscle weakness (generalized)
CPT/HCPCS: 70553; 72156; 72157

== ENCOUNTER 2022-04-02 17:38 | Outpatient (REF) | payer OTHER, SELFPAY ==
[2022-04-03 17:46] LABS: Rheumatoid Factor <8.6 IU/mL (<12.0)
[2022-04-03 22:32] LABS: CEA 0.7 ng/mL (See Note); PSA, Screening 0.4 ng/mL (<=2.5)
[2022-04-04 09:20] LABS: Cyclic Citrullinated Peptide <2.5 U/mL (<5.0)
[2022-04-04 10:47] LABS: AFP Tumor Marker 2.7 ng/mL (<8.1)
[2022-04-04 11:20] LABS: CA 19-9 <2 U/mL (<35)
[2022-04-04 14:14] LABS: ANA Interpretation Positive (Negative); ANA Titer Pattern 1:80 Homogeneous
[2022-04-05 13:39] LABS: dsDNA Ab, IgG 17.6 IU/mL (<30.0)
== END 2022-04-02 17:39 | disposition home or self-care (01) ==
LOC: LBN 17:38
PROVIDERS: PCP Student in an Organized Health Care Education/Training Program; Visit Provider Student in an Organized Health Care Education/Training Program
DX: K76.9 Liver disease, unspecified (principal); R91.8 Other nonspecific abnormal finding of lung field
CPT/HCPCS: 84153; 86200; 82105; 82378; 86038; 86225; 86301; 86431

== ENCOUNTER 2022-04-06 15:49 | Outpatient (REF) | payer OTHER, SELFPAY ==
[2022-04-08 11:33] LABS: COVID-19 RT-PCR UVMMC Result Negative (Negative)
== END 2022-04-06 15:50 | disposition home or self-care (01) ==
LOC: LBN 15:49
PROVIDERS: PCP Student in an Organized Health Care Education/Training Program; Visit Provider Student in an Organized Health Care Education/Training Program
DX: Z20.822 Contact with and (suspected) exposure to COVID-19 (principal)
CPT/HCPCS: U0003

== ENCOUNTER 2022-07-11 04:55 | Outpatient (CLI) | payer OTHER, SELFPAY ==
[2022-07-11 10:34] LABS: Abs Immature Grans 0.01 10^3/uL (0.0-0.06); Absolute Basophil Count 0.03 10^3/uL (0.0-0.2); Absolute Eosinophil Count 0.37 10^3/uL (0.0-0.7); Absolute Lymphocyte Count 2.28 10^3/uL (1.2-3.4); Absolute Monocyte Count 0.29 10^3/uL (0.1-0.8); Absolute Neutrophil Count 2.15 10^3/uL (1.2-6.7); Basophils % 0.6; Eosinophils % 7.2; HCT 42.8 % (40.0-50.0); HGB 13.4 g/dL (13.5-17.5); Immature Grans % 0.2; Lymphocytes % 44.4; MCH 20.7 pg (27.0-33.0); MCHC 31.3 % (32.0-36.0); MCV 66 fL (80-95); MPV 9.2 fL (8.0-11.0); Monocytes % 5.7; Neutrophils % 41.9; Platelet Count 311 10^3/uL (130-400); RBC 6.48 10^6/uL (4.36-5.78); RDW 13.8 % (11.8-14.1); RDW-SD 32.1 fL; WBC 5.13 10^3/uL (4.4-10.8)
[2022-07-11 10:53] LABS: ALT 30 U/L (16-63); AST 21 U/L (15-37); Albumin 4.3 g/dL (3.4-5.0); Alkaline Phosphatase 86 U/L (46-116); Anion Gap 5.7 mmol/L (3-11); BUN 15 mg/dL (7-18); Bilirubin, Total 0.5 mg/dL (0.2-1.0); CO2 30.3 mmol/L (21.0-32.0); CREATININE 1.2 mg/dL (0.70-1.30); Calcium 9.7 mg/dL (8.5-10.1); Chloride 104 mmol/L (98-107); Estimated GFR 79.88 (mL/min/1.73m2); Glucose 101 mg/dL (74-106); LDH 120 U/L (85-227); Potassium 4.2 mmol/L (3.5-5.1); Sodium 140 mmol/L (136-145)
== END 2022-07-11 04:56 | disposition home or self-care (01) ==
LOC: LBO 04:55
PROVIDERS: PCP Student in an Organized Health Care Education/Training Program; Visit Provider Internal Medicine Hematology & Oncology
DX: D47.Z9 Other specified neoplasms of uncertain behavior of lymphoid, hematopoietic and related tissue (principal)
CPT/HCPCS: 36415; 80053; 83615; 85025

== ENCOUNTER 2023-03-08 10:48 | Outpatient (CLI) | payer OTHER, SELFPAY ==
[2023-03-08 10:34] LABS: Abs Immature Grans 0.02 10^3/uL (0.0-0.06); Absolute Basophil Count 0.03 10^3/uL (0.0-0.2); Absolute Eosinophil Count 0.19 10^3/uL (0.0-0.7); Absolute Lymphocyte Count 1.76 10^3/uL (1.2-3.4); Absolute Monocyte Count 0.58 10^3/uL (0.1-0.8); Absolute Neutrophil Count 3.33 10^3/uL (1.2-6.7); Basophils % 0.5; Eosinophils % 3.2; HCT 40.3 % (40.0-50.0); HGB 12.7 g/dL (13.5-17.5); Immature Grans % 0.3; Lymphocytes % 29.8; MCH 20.7 pg (27.0-33.0); MCHC 31.5 % (32.0-36.0); MCV 66 fL (80-95); MPV 9.2 fL (8.0-11.0); Monocytes % 9.8; Neutrophils % 56.4; Platelet Count 338 10^3/uL (130-400); RBC 6.13 10^6/uL (4.36-5.78); RDW 15.9 % (11.8-14.1); RDW-SD 34.8 fL; WBC 5.91 10^3/uL (4.4-10.8)
[2023-03-08 11:10] LABS: ALT 25 U/L (16-63); AST 17 U/L (15-37); Albumin 4.5 g/dL (3.4-5.0); Alkaline Phosphatase 79 U/L (46-116); Anion Gap 8.7 mmol/L (3-11); BUN 14 mg/dL (7-18); Bilirubin, Total 0.5 mg/dL (0.2-1.0); CO2 29.3 mmol/L (21.0-32.0); CREATININE 1.2 mg/dL (0.70-1.30); Calcium 9.8 mg/dL (8.5-10.1); Chloride 102 mmol/L (98-107); Estimated GFR 79.38 (mL/min/1.73m2); Glucose 92 mg/dL (74-106); Potassium 4.3 mmol/L (3.5-5.1); Sodium 140 mmol/L (136-145); Total Protein 8.1 g/dL (6.4-8.2)
[2023-03-08 11:14] LABS: Microcytosis 1+
== END 2023-03-08 10:49 | disposition home or self-care (01) ==
LOC: LBO 10:48
PROVIDERS: PCP Student in an Organized Health Care Education/Training Program; Visit Provider Psychiatry & Neurology Neurocritical Care
DX: G35 Multiple sclerosis (principal)
CPT/HCPCS: 36415; 80053; 85025

== ENCOUNTER 2023-06-28 21:54 | Outpatient (CLI) | payer OTHER, SELFPAY ==
[2023-06-28 14:49] LABS: Abs Immature Grans 0.02 10^3/uL (0.0-0.06); Absolute Basophil Count 0.06 10^3/uL (0.0-0.2); Absolute Eosinophil Count 0.24 10^3/uL (0.0-0.7); Absolute Lymphocyte Count 1.91 10^3/uL (1.2-3.4); Absolute Monocyte Count 0.57 10^3/uL (0.1-0.8); Absolute Neutrophil Count 2.17 10^3/uL (1.2-6.7); Basophils % 1.2; Eosinophils % 4.8; HGB 12.9 g/dL (13.5-17.5); Immature Grans % 0.4; Lymphocytes % 38.4; MCH 20.5 pg (27.0-33.0); MCHC 31.5 % (32.0-36.0); MCV 65 fL (80-95); MPV 9.4 fL (8.0-11.0); Monocytes % 11.5; Neutrophils % 43.7; Platelet Count 284 10^3/uL (130-400); RBC 6.29 10^6/uL (4.36-5.78); RDW 14.1 % (11.8-14.1); RDW-SD 32.3 fL; WBC 4.97 10^3/uL (4.4-10.8)
[2023-06-28 15:01] LABS: Diff Comment RBC Morph Reviewed; Microcytosis 2+
[2023-06-28 15:36] LABS: ALT 34 U/L (16-63); AST 18 U/L (15-37); Alkaline Phosphatase 86 U/L (46-116); Anion Gap 6.9 mmol/L (3-11); BUN 24 mg/dL (7-18); Bilirubin, Total 0.3 mg/dL (0.2-1.0); CO2 30.1 mmol/L (21.0-32.0); CREATININE 1.3 mg/dL (0.70-1.30); Calcium 9.7 mg/dL (8.5-10.1); Chloride 104 mmol/L (98-107); Estimated GFR 72.11 (mL/min/1.73m2); Glucose 114 mg/dL (74-106); Potassium 3.9 mmol/L (3.5-5.1); Sodium 141 mmol/L (136-145); Total Protein 7.6 g/dL (6.4-8.2)
== END 2023-06-28 21:55 | disposition home or self-care (01) ==
LOC: LBO 21:55
PROVIDERS: PCP Student in an Organized Health Care Education/Training Program; Visit Provider Psychiatry & Neurology Neurology
DX: G35 Multiple sclerosis (principal); Z86.2 Personal history of diseases of the blood and blood-forming organs and certain disorders involving the immune mechanism
CPT/HCPCS: 36415; 80053; 85025

== ENCOUNTER → 2023-07-03 00:44 | Outpatient (CLI) | payer OTHER, SELFPAY ==
--- NOTE | 2023-07-03 09:15 | DI.MRI_ITS ---
Exam(s) MR BRAIN WO EXAM: MR BRAIN WO CLINICAL HISTORY: MS; clinically stable,g35 TECHNIQUE: Multiplanar multisequence MRI of the brain was performed. COMPARISON: MR MR BRAIN WO/W from 03/15/2022 FINDINGS: CEREBRAL PARENCHYMA: There is no evidence of intracranial hemorrhage, mass effect, or shift of midline structures. There are no extra-axial fluid collections. Ventricles are not enlarged or shifted. There is no significant focal signal abnormality in the cerebellar hemispheres nor within the bart, m idbrain, and thalami. There is continued stable appearance of size and number of the previously described multiple plaques in the periventricular white matter and corpus callosum. These are not associated with restricted di ffusion. No new plaques evident. There is no significant focal signal abnormality evident on diffusion imaging to suggest acute ischem ic event. PITUITARY GLAND: No mass nor parasellar abnormality. No obvious abnormality in the cavernous sinuses. FLOW VOIDS: The expected flow void are noted. No evidence of obvious aneurysm nor obvious vascular ma lformation. PARANASAL SINUSES: There is increasing mucosal thickening in the floor of the right maxillary sinus a nd circumferentially left maxillary sinus. Nevertheless, no obvious fluid levels. Sphenoid sinuses clear. Mild mucosal thickening in the frontal sinuses noted. No abnormal signal in the mastoid air cells. ORBITS: No obvious findings. IMPRESSION: Compared to MRI scan of March 2022 there is no significant change in the size and number of white matter lesions/plaques. No new plaques evident. Sinus mucosal disease as described above. DATA REPOSITORY:
== END ==
PROVIDERS: PCP Student in an Organized Health Care Education/Training Program; Visit Provider Psychiatry & Neurology Neurology
DX: G35 Multiple sclerosis (principal); J32.8 Other chronic sinusitis
CPT/HCPCS: 70551

== ENCOUNTER 2023-08-08 13:10 | Outpatient (CLI) | payer OTHER, SELFPAY ==
[2023-08-08 13:02] LABS: Abs Immature Grans 0.05 10^3/uL (0.0-0.06); Absolute Basophil Count 0.09 10^3/uL (0.0-0.2); Absolute Eosinophil Count 0.35 10^3/uL (0.0-0.7); Absolute Lymphocyte Count 2.39 10^3/uL (1.2-3.4); Absolute Monocyte Count 0.67 10^3/uL (0.1-0.8); Absolute Neutrophil Count 4.86 10^3/uL (1.2-6.7); Basophils % 1.1; Eosinophils % 4.2; HCT 40.6 % (40.0-50.0); HGB 12.5 g/dL (13.5-17.5); Immature Grans % 0.6; Lymphocytes % 28.4; MCH 20.1 pg (27.0-33.0); MCHC 30.8 % (32.0-36.0); MPV 8.7 fL (8.0-11.0); Neutrophils % 57.7; Platelet Count 424 10^3/uL (130-400); RDW 15.1 % (11.8-14.1); WBC 8.41 10^3/uL (4.4-10.8)
[2023-08-08 13:09] LABS: MCV 65 fL (80-95); RBC 6.23 10^6/uL (4.36-5.78)
[2023-08-08 13:17] LABS: Diff Comment Diff Reviewed; Microcytosis 2+
[2023-08-08 13:26] LABS: ALT 30 U/L (16-63); AST 20 U/L (15-37); Albumin 3.6 g/dL (3.4-5.0); Alkaline Phosphatase 85 U/L (46-116); Anion Gap 9.6 mmol/L (3-11); BUN 17 mg/dL (7-18); Bilirubin, Direct 0.1 mg/dL (0.0-0.2); Bilirubin, Total 0.2 mg/dL (0.2-1.0); CO2 28.4 mmol/L (21.0-32.0); CREATININE 1.1 mg/dL (0.70-1.30); Calcium 10.1 mg/dL (8.5-10.1); Chloride 102 mmol/L (98-107); Estimated GFR 88.12 (mL/min/1.73m2); Glucose 109 mg/dL (74-106); LDH 135 U/L (85-227); Potassium 4.2 mmol/L (3.5-5.1); Sodium 140 mmol/L (136-145); Total Protein 7.7 g/dL (6.4-8.2)
== END 2023-08-08 13:11 | disposition home or self-care (01) ==
LOC: LBO 13:13
PROVIDERS: Psychiatry & Neurology Neurology; PCP Student in an Organized Health Care Education/Training Program; Visit Provider Internal Medicine Hematology & Oncology
DX: G35 Multiple sclerosis (principal)
CPT/HCPCS: 36415; 80053; 80076; 83615; 85025

== ENCOUNTER 2024-02-11 08:21 | Outpatient (CLI) | payer OTHER, SELFPAY ==
[2024-02-11 08:42] LABS: Abs Immature Grans 0.01 10^3/uL (0.0-0.06); Absolute Basophil Count 0.07 10^3/uL (0.0-0.2); Absolute Eosinophil Count 0.45 10^3/uL (0.0-0.7); Absolute Monocyte Count 0.49 10^3/uL (0.1-0.8); Basophils % 1.5 %; Eosinophils % 9.5 %; HCT 43.3 % (40.0-50.0); HGB 13.5 g/dL (13.5-17.5); Immature Grans % 0.2 %; MCH 20.7 pg (27.0-33.0); MCHC 31.2 % (32.0-36.0); MPV 9.8 fL (8.0-11.0); Monocytes % 10.4 %; Neutrophils % 42.4 %; Platelet Count 284 10^3/uL (130-400); RBC 6.51 10^6/uL (4.36-5.78); RDW 15.9 % (11.8-14.1); RDW-SD 34.5 fL; WBC 4.72 10^3/uL (4.4-10.8)
[2024-02-11 08:46] LABS: MCV 67 fL (80-95)
[2024-02-11 08:55] LABS: Diff Comment RBC Morph Reviewed; Hypochromasia 1+; Microcytosis 2+
[2024-02-11 08:58] LABS: ALT 31 U/L (16-63); AST 18 U/L (15-37); Albumin 4.2 g/dL (3.4-5.0); Alkaline Phosphatase 75 U/L (46-116); Anion Gap 8.5 mmol/L (3-11); BUN 15 mg/dL (7-18); Bilirubin, Total 0.47 mg/dL (0.2-1.0); CO2 29.5 mmol/L (21.0-32.0); CREATININE 1.1 mg/dL (0.70-1.30); Calcium 9.6 mg/dL (8.5-10.1); Chloride 103 mmol/L (98-107); Estimated GFR 87.57 (mL/min/1.73m2); Glucose 99 mg/dL (74-106); LDH 128 U/L (85-227); Sodium 141 mmol/L (136-145); Total Protein 7.4 g/dL (6.4-8.2)
[2024-02-11 09:20] LABS: Vitamin D 25 Total 31.2 ng/mL (30-100)
== END 2024-02-11 08:22 | disposition home or self-care (01) ==
LOC: LBO 08:22
PROVIDERS: PCP Student in an Organized Health Care Education/Training Program; Visit Provider Internal Medicine Hematology & Oncology
DX: K90.9 Intestinal malabsorption, unspecified; K76.9 Liver disease, unspecified; D56.9 Thalassemia, unspecified; D47.Z9 Other specified neoplasms of uncertain behavior of lymphoid, hematopoietic and related tissue; G35 Multiple sclerosis
CPT/HCPCS: 36415; 80053; 82306; 83615; 85025

== ENCOUNTER 2024-11-02 00:04 | Outpatient (CLI) | payer OTHER, SELFPAY ==
--- NOTE | 2024-11-02 06:30 | DI.MRI_ITS ---
Exam(s) MR BRAIN WO/W EXAM: MR BRAIN WO/W CLINICAL HISTORY: MULTIPLE SCLEROSIS,clinically stable,G35. TECHNIQUE: Multiplanar multisequence MRI of the brain was performed. CONTRAST MATERIAL: IV Contrast: 15 ML of Dotarem contrast administered. COMPARISON: MR MR BRAIN WO from 07/03/2023 FINDINGS: VENTRICLES AND EXTRA AXIAL SPACES: Normal in size and morphology for the patient's age. HEMORRHAGE: None. CEREBRAL PARENCHYMA: No focus of restricted diffusion to suggest acute infarct. No evidence of mass. Stable foci of high signal in the periventricular white matter. No new lesions are identified. The re are no evidence of restricted diffusion. No enhancing lesions. BRAINSTEM/CEREBELLUM: Normal. CALVARIUM: Normal. ENHANCEMENT: No suspicious enhancement identified. VISUALIZED PARANASAL SINUSES/MASTOIDS: Mucosal thickening at the floors of the maxillary sinuses, eth moid sinuses and bilateral frontal and sphenoid sinuses. Orbits: Unremarkable. Pituitary: Not enlarged. Vasculature: Normal flow voids. IMPRESSION: Stable bilateral white matter foci consistent with multiple sclerosis plaques. DATA REPOSITORY:
[2024-11-02] MEDS: Gadoterate meglumine 20 ML SYRINGE 15 ML IVP (08:43)
[2024-11-02] MEDS: Normal Saline Flush 10 ML SYR IVP (08:44)
== END 2024-11-02 00:24 ==
LOC: DI 00:04
PROVIDERS: PCP Internal Medicine; Visit Provider Psychiatry & Neurology Neurology
DX: G35 Multiple sclerosis (principal)
CPT/HCPCS: 70553

== ENCOUNTER 2025-02-27 19:04 | Emergency (ER) | payer OTHER, SELFPAY ==
[2025-02-27 19:06] VITALS: BP 141/97; PULSE 94; RESP 18; TEMP 37.1; O2SAT 98
--- NOTE | 2025-02-27 19:15 | DI.RAD_ITS ---
Exam(s) XR KNEE LT 4V AP,LAT,PHYLICIA,PAT EXAM: XR KNEE LT 4V AP,LAT,PHYLICIA,PAT CLINICAL HISTORY: dropped amplifier on knee. TECHNIQUE: 2D digital imaging was performed. COMPARISON: No exams were available for comparison FINDINGS: Four views No evidence of acute fracture but there does appear to be a joint effusion. Bone density normal. No osseous lesions. No joint space narrowing. No chondrocalcinosis. IMPRESSION: No acute osseous findings but there is a joint effusion which may signify internal derangement. Appropriate orthopedic follow-up recommended DATA REPOSITORY: RADIATION DOSE DELIVERED:
--- NOTE | 2025-02-27 19:32 | ED.GENADUL_ITS ---
Discharge Plan Disposition Patient Disposition: Home Condition: Stable Discharge Details Clinical Impression: Contusion of knee, left Primary Care Provider: Khadijah Kingston ED Provider: Oliva Khan Home Meds and New Rx's Prescriptions: No Action fluticasone propionate [Flonase Allergy Relief] 50 mcg/actuation spray,suspension 2 spray intranasal DAILY Qty: 16 12RF Rx Instructions: administer into each nostril ergocalciferol (vitamin D2) [Vitamin D2] 1,250 mcg (50,000 unit) capsule 50,000 unit PO QWEEK Qty: 12 3RF tretinoin 0.05 % cream 1 applic topical QHS Rx Instructions: Apply topically 1/2 nights per week, working up to nightly teriflunomide [Aubagio] 7 mg tablet 7 mg PO DAILY Qty: 90 3RF levetiracetam 500 mg tablet extended release 24 hr 1,000 mg PO HS Qty: 180 3RF Discharge Instructions Instructions: Knee Pain ED Additional Instructions: You were seen in the emergency department today for evaluation after dropping a heavy item on your left knee. Did not apparently had a full physical examination performed, had x-ray imaging that on preliminary read does not show any fractures or dislocations, but does show some swelling in the top portion of the knee. You were placed in a hinged knee brace and given crutches to assist with ambulation. When your pain starts to improve, I want you to trial putting more weight on the leg. The brace needs to be worn when you are up and about, but can be taken off for resting and sleeping. Please continue to use ice and elevation for management of swelling. Please use therapeutic dosing of Tylenol (acetaminophen) & Advil (ibuprofen) in an alternating fashion as follows: Take 1000mg of Tylenol every 6 hours without missing doses- that is 4 times per day. [facility] in between the Tylenol doses, take 600mg of Advil also on a 6 hour schedule, that is also 4 times per day. With this strategy, you will be taking something for fever/pain as often as every 3 hours. The daily maximum dosing of Tylenol is 4000mg, and the daily maximum dosing of Advil is 2400mg. Please note that some common cold medications & prescription pain medications may contain acetaminophen and you need to read OTC drug labels and factor that in to maximum daily doses. Please follow-up with your primary care provider in the next few days to discuss this visit and any symptoms that change, worsen, or persist. Thank you for allowing us to be part of your care. HPI General Mode of arrival: wheelchair . Date/Time Provider Initiated Documentation: 02/27/25 19:05 . Limitations to Documentation: no limitations . Information obtained by: patient and old records reviewed . HPI Narrative: This is a 39-year-old male patient with a past medical history significant for well-controlled multiple sclerosis and epilepsy, presenting for evaluation of left knee injury. The patient was in his normal state of health today, was carrying a 45 pound amplifier up some steps, and dropped it onto the medial/anterior aspect of his left knee. The patient immediately had to sit down and had significant pain when attempting to bear weight. He reports that straightening the leg causes reproduction of his pain, states that he did not injure any other part of his body, and was without new numbness, tingling, or weakness. This injury occurred around 4 PM, he has used ice, Tylenol, and ibuprofen for management of pain. No history of prior injury to that knee Related Data Home Medications ?Medication ?Instructions ?Recorded ?Confirmed tretinoin 0.05 % topical cream 1 applic topical QHS 02/27/25 fluticasone propionate 50 2 spray intranasal DAILY #16 grams 12/05/23 02/27/25 mcg/actuation nasal spray,suspension (Flonase Allergy Relief) teriflunomide 7 mg tablet (Aubagio) 7 mg PO DAILY #90 tabs 04/13/24 02/27/25 levetiracetam 500 mg 1,000 mg (2 x 500 mg) PO HS #180 07/20/24 02/27/25 tablet,extended release 24 hr tabs ergocalciferol (vitamin D2) 1,250 50,000 unit PO QWEEK #12 caps 10/05/24 02/27/25 mcg (50,000 unit) capsule (Vitamin D2) Previous Rx's ?Medication ?Instructions ?Recorded fluticasone propionate 50 2 spray intranasal DAILY #16 grams 12/05/23 mcg/actuation nasal spray,suspension (Flonase Allergy Relief) teriflunomide 7 mg tablet (Aubagio) 7 mg PO DAILY #90 tabs 04/13/24 levetiracetam 500 mg 1,000 mg (2 x 500 mg) PO HS #180 07/20/24 tablet,extended release 24 hr tabs ergocalciferol (vitamin D2) 1,250 50,000 unit PO QWEEK #12 caps 10/05/24 mcg (50,000 unit) capsule (Vitamin D2) Allergies Allergy/AdvReac Type Severity Reaction Status Date / Time No Known Allergies Allergy Verified 02/27/25 19:10 General Stated Complaint: Orthopedic RESHMA: 3 Exam Narrative Exam Narrative: Gen: Awake and alert, in no apparent distress HEENT: Non-icteric sclera Neck: Supple Lungs: No apparent respiratory distress, normal respiratory effort. CV: Appears well perfused Abdomen: Non-distended MSK: Moves 4 extremities without apparent limitation in ROM with the exception of the left knee. The patient has some swelling to the medial aspect of the left knee, just proximal to the patella. No overlying skin breaks or ecchymosis. The patient is able to range the knee but extremes of extension causes reproduction of pain. Small palpable effusion, tenderness to palpation over the superior and medial aspects of the patella, otherwise no tenderness along the medial or lateral joint lines or in the popliteal fossa. CSM's intact distal to this injury. Skin: Visualized skin without rashes, cyanosis. Neuro: No obvious focal deficits or facial asymmetry. Speaks in full, clear sentences. Psych: Appropriate for situation. Course Vital Signs Vital signs: Vital Signs Temperature 37.1 C 02/27/25 19:06 Pulse 94 H 02/27/25 19:06 Respiratory Rate 18 02/27/25 19:06 Blood Pressure 141/97 H 02/27/25 19:06 Pulse Oximetry 98 02/27/25 19:06 Temperature 37.1 C 02/27/25 19:06 Temperature Source Oral 02/27/25 19:06 Pulse 94 H 02/27/25 19:06 Respiratory Rate 18 02/27/25 19:06 Blood Pressure 141/97 H 02/27/25 19:06 Blood Pressure Position Sitting 02/27/25 19:06 Pulse Oximetry 98 02/27/25 19:06 Oxygen Delivery Method Room Air 02/27/25 19:06 Oxygen Flow Rate 0 02/27/25 19:06 Pain Level 6 02/27/25 19:06 Medical Decision Making This is a 39-year-old male patient presenting for evaluation of a knee injury. Differential includes but is not limited to fracture, dislocation, contusion, hematoma, internal derangement, muscular strain/tear. This is an isolated injury and the patient is without medical complaints prior to the event to suggest anything other than a mechanical injury. No evidence of neurovascular derangement. We will provide the patient with an ice pack and obtain an x-ray. He is driving home today and is hopeful to avoid medications that would cause sedation. -I independently interpreted the patient's x-ray imaging, which shows no fracture, dislocation, or other severe osseous abnormality. The patient was provided with a hinged knee brace for comfort and crutches for ongoing pain with weightbearing. He was counseled on a gradual return to weightbearing, and use of the brace when up and about. We discussed conservative management of pain and swelling, and at this time, the patient has had a full medical evaluation and is safe for discharge to home. They are hemodynamically stable, ambulatory, and tolerating PO. They are understanding of the follow-up plan and return precautions. They left our facility without incident. 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 [ ] CT/Labs, October 2022 @ [facility] Onc. Liver lesion (Acute) NOT METS! per Abd CT (03/29/22) .. thru-out liver, lrgst 14mm in med inf rt lobe.. susp for metastatic dz.. Pulmonary nodules (Acute) NOT MALIG! Multiple, spiculated, Lrgst rt upper lobe, [id number]; lrgst lft lingular seg, [id number]. On eis pleural based, sup of lll, 1.9x1.4cm.. No pleur al effusions. Thalassemia (Chronic) Thalassemia Trait per HGB A & A2 (+). Per chart review: No Heme Hx? CBC Review 02/2022: High RBC/LowNrml HGB/Low MCV. 12/12/18 REVIEWED BY PATHOLOGIST: MODERATE MICROCYTOSIS WITH ONLY MILD ANEMIA. SUGGEST THALASSEMIA MINOR. Multiple sclerosis (Chronic) Microcytic erythrocytes (Chronic) Hx Thalassemia per chart review.. NON Anemic [or mildly anemic]. Stress due to illness of family member (Acute) is going through breast cancer Tx .. young baby @ home .. supportive extended family?? Acne vulgaris (Acute) Per [facility] Derm note from 84 Acne (Acute) Sees dermatology: Accutane, Tretinoin. Uses sunscreen. Family history of heart disease (Acute) Fa had VT @ 44yo (Hx smkg/chol/poor diet, ex). Mo w/ HTN. Hand paresthesia (Acute) resolved .. repetitive work Medical History Inclusion cyst Probable epidermal cyst, benign, but Bx warranted due to episodic inflammation. Left forearm/wrist. Iron deficiency Hx Thalassemia Focal epilepsy Surgical History No significant past surgical history Family History Father Heart attack Diabetes Heart disease Maternal Grandfather Heart attack Paternal Grandfather Diabetes Mother Thalassemia Maternal Uncle Breast cancer in male Other Brain cancer Social History Smoking/Tobacco Use Status: Former Tobacco Use Quit Date: 07/08/14 Pack-years: 10 Tobacco: How many years used: 10 Second Hand Exposure: No Smoking risk assessment performed?: Yes Alcohol Intake: current Alcohol Intake frequency: a few times a week Alcohol type: beer and other Drug use: Never Substance use type: marijuana Adopted: No Caregiver/Support person: No Foster care: No Household members: spouse and children Housing: house Number of Children: 1 number of grandchildren: 0 Communication Needs: None Education Level: college Do you need help understanding health information?: Rarely current occupation: Production/Entertainment Pets and animals: Yes Pets and animals: cat(s) and dog(s) Sexually active: Yes Do you think of yourself as: straight/heterosexual Current gender identity: male What is your relationship status?: How often do you talk on the phone with friends or family?: once per week How often do you get together with friends or relatives?: never Do you belong to any clubs or organized social groups?: no Panel score (0-1 are the most socially isolated patients): 1 What type of physical activity do you participate in: walking Duration: 30-45 minutes/day Frequency: 3-4 times per week Rajwinder/Roman Catholic: None Special rajwinder needs: No Seatbelt use: always Helmet use: Yes Helmet use: other Details: n/a Drive intox or ride w/intox cdl driver: No Working smoke detector in home: Yes Do you feel safe at home: Yes Do you feel safe in your relationship?: Yes
[2025-02-27 21:03] VITALS: BP 139/86; PULSE 89; RESP 16; TEMP 36.7
--- NOTE | 2025-02-27 21:28 | DI.VRAD_ITS ---
PROCEDURE INFORMATION: Exam: XR Left Knee Exam date and time: 02/27/2025 7:44 PM Age: 39 years old Clinical indication: Pain; Left; Dropped amplifier on knee TECHNIQUE: Imaging protocol: Radiologic exam of the left knee. Views: 4 or more views. COMPARISON: No relevant prior studies available. FINDINGS: Bones/joints: Normal. Soft tissues: Normal. IMPRESSION: No evidence for acute posttraumatic abnormality. Dictated and Authenticated by: Hue Gamboa MD. Orderin [facility]. Isaias Baptiste MD
--- NOTE | 2025-03-23 10:09 | NUR.NOTE ---
Accessed Pt chart to print provider summary for [facility].
== END 2025-02-27 20:57 | disposition home or self-care (01) ==
PROVIDERS: Emergency Provider Emergency Medicine; PCP Internal Medicine
DX: S80.02XA Contusion of left knee, initial encounter (principal); W22.8XXA Striking against or struck by other objects, initial encounter
CPT/HCPCS: 99283 ×2; 29505; 73564